=== PATIENT | male | born 1975 | race Caucasian/White ===

== ENCOUNTER 2016-06-25 22:19 | Emergency (ER) | payer MEDICAID ==
[~2016-06-25] VITALS: Ht 170.2 cm; Wt 63.5 kg
[2016-06-25 22:22] VITALS: BP 114/70
== END 2016-06-26 06:01 | disposition left against medical advice (07) ==
LOC: ER 22:33
DX: M79.5 Residual foreign body in soft tissue (principal); Z53.21 Procedure and treatment not carried out due to patient leaving prior to being seen by health care provider; Z59.0 Homelessness